=== PATIENT | female | born 1975 | race Caucasian/White ===

== ENCOUNTER 2018-06-01 08:07 | Emergency (ER) | payer OTHER ==
[~2018-06-01] VITALS: Ht 165.1 cm; Wt 57.6 kg
[2018-06-01 09:51] VITALS: BP 126/76
== END 2018-06-01 09:52 | disposition home or self-care (01) ==
LOC: ER 08:07
DX: M79.661 Pain in right lower leg (principal); R42 Dizziness and giddiness; R11.0 Nausea; Z88.6 Allergy status to analgesic agent

== ENCOUNTER → 2020-10-11 | Outpatient (CLI) | payer BC | LOC: LAB 14:12 | PROVIDERS: ATTEND Anesthesiology | DX: Z01.812 Encounter for preprocedural laboratory examination (principal); Z20.828 Contact with and (suspected) exposure to other viral communicable diseases ==

== ENCOUNTER 2021-07-02 12:45 | Emergency (ER) | payer BC ==
[~2021-07-02] VITALS: Ht 165.1 cm; Wt 63.0 kg
[2021-07-02] MEDS ORDERED: NORVASC 2.5 MG2.5 MG PO (12:51)
[2021-07-02] MEDS ORDERED: XANAX 0.25 MG0.25 MG PO (12:52)
[2021-07-02 13:03] LABS: URINE BILIRUBIN NEGATIVE (Negative); URINE BLOOD NEGATIVE (Negative); URINE CLARITY CLEAR; URINE COLOR YELLOW; URINE GLUCOSE-RANDOM* NEGATIVE (Negative); URINE KETONES NEGATIVE (Negative); URINE NITRITE-REFLEX NEGATIVE (Negative); URINE PROTEIN (DIPSTICK) NEGATIVE (Negative); URINE SPECIFIC GRAVITY <= 1.005 (1.005-1.035); URINE UROBILINOGEN 0.2 E.U./dl (0.2-1.0)
[2021-07-02 13:05] LABS: URINE LEUKOCYTES-REFLEX 1+ (Negative)
[2021-07-02 13:13] LABS: HEMATOCRIT 42.9 % (37.0-47.0); HEMOGLOBIN 14.6 gm/dL (12.0-15.0); MCH 31.2 pg (26.0-34.0); MCHC 34.1 g/dL (28.0-37.0); MCV 91.6 fL (80.0-100.0); RBC 4.68 mil/uL (4.20-5.00); RDW 13.1 % (10.5-14.5); WBC 5.9 thou/uL (4.0-11.0)
[2021-07-02 13:23] LABS: SQUAMOUS >10 Many /LPF (0-3)
[2021-07-02 13:24] LABS: URINE WBC-REFLEX 6-15 Few /HPF (0-5)
[2021-07-02 13:25] LABS: ANION GAP 9 mmol/L (7-16); BUN 13 mg/dL (7-18); CALCIUM 9.4 mg/dL (8.5-10.1); CHLORIDE 105 mmol/L (98-107); CO2 26 mmol/L (21-32); CREATININE 0.9 mg/dL (0.6-1.0); GLUCOSE 104 mg/dL (74-106); POTASSIUM 3.7 mmol/L (3.5-5.1); SODIUM 140 mmol/L (136-145)
[2021-07-02 13:25] LABS: BACTERIA-REFLEX 1-9 Few /HPF (None Seen); URINE RBC 1-2 Rare /HPF (NONE SEEN)
[2021-07-02 13:35] LABS: ALBUMIN 4.2 g/dL (3.4-5.0); SGOT 25 U/L (15-37); SGPT 39 U/L (14-59); TOTAL BILIRUBIN 0.7 mg/dL (0.2-1.0); TOTAL PROTEIN 7.6 g/dL (6.4-8.2); TROPONIN-I <0.06 ng/mL (<0.06)
[2021-07-02] MEDS ORDERED: PRINIVIL20 M1 PO (13:49)
[2021-07-02] MEDS ORDERED: CEPHALEXIN500 MG PO (13:49)
[2021-07-02 14:00] VITALS: BP 156/93
--- NOTE | 2021-07-03 07:34 | EKG ---
[place] [address] [facility] [place] [address] ELECTROCARDIOGRAM REPORT Name: KRISSY FLEMING Room #: DEP [facility]#: [id number] Admission: 07/02/21 Attend Phys: Discharge: 07/02/21 Date of : 71 Report #: [id number] [facility] ED Test Date: 2021-07-02 Test Time: 13:07:53 Pat Name: KRISSY FLEMING Department: Room: Gender: F Flavoring Maker: ROSARIO : 1975 Requested By: Aliza Garcia Order Number: [id number] MD: Billy Sharma Measurements Intervals [place] Rate: 67 P: 35 HI: 119 QRS: 30 QRSD: 92 T: 37 QT: 386 QTc: 408 Interpretive Statements Sinus rhythm Borderline short HI interval No previous ECG available for comparison Electronically Signed On 07-03-2021 7:33:52 CDT by Billy Sharma [email or web address] <ELECTRONICALLY SIGNED> By: Billy Sharma MD, [facility] 07/03/21 0733 1307 [id number] Billy Sharma MD, FACLeonard /EPI
== END 2021-07-02 14:15 | disposition home or self-care (01) ==
LOC: ER 12:45
PROVIDERS: Nurse Practitioner Family
DX: I10 Essential (primary) hypertension (principal); N39.0 Urinary tract infection, site not specified; Z79.899 Other long term (current) drug therapy; Z88.6 Allergy status to analgesic agent